=== PATIENT | male | born 1945 | race Caucasian/White ===

== ENCOUNTER → 2018-03-29 14:48 | Outpatient (CLI) | payer MEDICARE, SELFPAY ==
[2018-03-29 15:59] LABS: PSA,Total- Diagnostic < 0.01 ng/mL (0.0-4.0)
== END ==
PROVIDERS: Family Provider Family Medicine; PCP Family Medicine; Visit Provider Urology
DX: C61 Malignant neoplasm of prostate (principal)
CPT/HCPCS: 36415; 84153

== ENCOUNTER → 2018-09-27 13:12 | Outpatient (CLI) | payer MEDICARE, SELFPAY ==
[2017-02-13 08:13] VITALS: BMI 28.9
[2018-09-27 14:12] LABS: PSA,Total- Diagnostic < 0.01 ng/mL (0.0-4.0)
== END ==
PROVIDERS: Family Provider Family Medicine; PCP Family Medicine; Referring Provider Urology; Visit Provider Urology
DX: C61 Malignant neoplasm of prostate (principal)
CPT/HCPCS: 36415; 84153

== ENCOUNTER → 2019-03-30 12:14 | Outpatient (CLI) | payer MEDICARE, SELFPAY ==
[2019-03-30 14:15] LABS: PSA,Total- Diagnostic < 0.01 ng/mL (0.0-4.0)
== END ==
PROVIDERS: Family Provider Family Medicine; PCP Family Medicine; Referring Provider Urology; Visit Provider Urology
DX: C61 Malignant neoplasm of prostate (principal)
CPT/HCPCS: 36415; 84153

== ENCOUNTER → 2020-04-23 | Outpatient (CLI) | payer MEDICARE, SELFPAY ==
[2017-02-13 08:13] VITALS: BMI 28.9
[2020-04-23 09:08] LABS: PSA,Total- Diagnostic < 0.01 ng/mL (0.0-4.0)
== END | disposition home or self-care (01) ==
PROVIDERS: PCP Family Medicine; Referring Provider Urology; Visit Provider Urology
DX: Z85.46 Personal history of malignant neoplasm of prostate (principal)
CPT/HCPCS: 36415; 84153

== ENCOUNTER → 2020-04-24 | Outpatient (CLI) | payer MEDICARE, SELFPAY ==
[2017-02-13 08:13] VITALS: BMI 28.9
[2020-04-24 16:22] LABS: Bacteria 0 SEEN /hpf (None Seen); Mucous, Urine 0 SEEN /hpf (<or=2+)
[2020-04-24 16:29] LABS: Glucose, Dipstick Normal (Normal); Ketone-Dipstick Negative (Negative); Leukocyte Esterase-Dipstick Negative /ul (Negative); Nitrite-Dipstick Negative (Negative); Occult Blood-Urine 50 /ul (Negative); Protein-Dipstick 15 mg/dl (Negative); Specific Gravity, Urine 1.025 (1.002-1.030); Urine Bilirubin Dipstick Negative (Negative); Urine Urobilinogen Normal (Normal)
[2020-04-24 16:41] LABS: Color, Urine Yellow (Yellow); Urine Clarity Sl Cldy (Clear)
[2020-04-24 16:56] LABS: Red Blood Cells-Urine 5-10 SEEN /hpf (0-5); Squamous Epithelial Cells - UA 0-5 SEEN /hpf (0-5); White Blood Cells 0-5 SEEN /hpf (0-5)
== END | disposition home or self-care (01) ==
LOC: LABSPEC 16:13
PROVIDERS: PCP Family Medicine; Referring Provider Urology; Visit Provider Urology
DX: R31.9 Hematuria, unspecified (principal)
CPT/HCPCS: 81001

== ENCOUNTER → 2021-05-16 10:27 | Outpatient (CLI) | payer MEDICARE, SELFPAY ==
[2021-05-16 11:40] LABS: PSA,Total- Diagnostic < 0.01 ng/mL (0.0-4.0)
== END ==
PROVIDERS: PCP Family Medicine; Visit Provider Radiology Radiation Oncology
DX: Z85.46 Personal history of malignant neoplasm of prostate (principal)
CPT/HCPCS: 36415; 84153

== ENCOUNTER 2024-02-24 11:44 | Day surgery (SDC) | payer MEDICARE, SELFPAY ==
[2024-02-24] VITALS (8 sets, daily range): BP systolic 118–164; BP diastolic 51–91; PULSE 63–69; RESP 12–16; TEMP 36.1–36.9; O2SAT 94–98; BMI 28.5
[2024-02-24] MEDS: Lactated Ringers 1,000 ML 15 ML IV (12:12)
--- NOTE | 2024-02-24 12:21 | PRE.ANES_ITS ---
ASA Classification* ASA Classification ASA Classification: 2 Assessment & Plan Anesthesia* Anesthesia Assessment Anesthesia Assessment: Discussed sedation and/or anesthesia options, risks, benefits, and alternatives with patient/parents/legal guardian/POA. Questions invited. The patient/parents/legal guardian/POA seems to understand and agrees to proceed with anesthesia plan. Reviewed the physical assessment, medical history, allergy history and patient home medications list prior to surgery/procedure/anesthetic and documented any changes. Performed airway and anesthesia risk assessments. Anesthesia Type Anesthesia Type: General History Source History Obtained from:: Patient and Chart Anesthesia Focused Assessment* Temperature: 97 F Pulse Rate: 67 Blood Pressure: 118/91 Respiratory Rate: 16 Pulse Ox: 98 Oxygen Delivery Method: Room Air Airway Assessment Mouth opens: >3 cm Mallampati Score: II Teeth Condition: Missing (Few missing molars. Rest are tight.) Neck Range of motion (ROM): Limited ROM (Slight decrease in extension.) Focused Labs Anesthesia Preop lab: CBC WBC 5.0 K/mm3 (4.4-11.0) 02/06/15 13:25 RBC 4.93 M/mm3 (4.6-6.2) 02/06/15 13:25 Hgb 15.4 g/dL (13.0-16.5) 02/06/15 13:25 Hct 44.3 % (40-54) 02/06/15 13:25 Plt Count 154 K/mm3 (150-450) 02/06/15 13:25 CHEMISTRY Potassium 3.8 mmol/L (3.5-5.1) 12/16/13 14:57 Sodium 140 mmol/L (136-145) 12/16/13 14:57 BUN 19 mg/dL (7-18) H 12/16/13 14:57 Creatinine 1.0 mg/dL (0.8-1.3) 12/07/14 13:44 Glucose 119 mg/dL (70-110) H 12/16/13 14:57 COAG Pre-Assessment Diagnosis/Proposed Procedure Planned Operative Procedure(s): CYSTOLITHOLAPAXY Anesthesia History Anesthesia History - sampler tester: Anesthesia History - sampler tester Hx Hospitalization No 02/22/24 08:11 Any Problems With Anesthesia No 02/22/24 08:11 Cholinesterase deficiency No 02/22/24 08:11 You/Your Family Experience No 02/22/24 08:11 fever (hyperthermia) with Relationship Recent Exposure to Contagious No 02/24/24 12:04 Disease Does patient have nerve No 02/22/24 08:11 stimulator Patient instructed to have device shut off --Does patient have Pacemaker No 02/24/24 12:04 or ICD? When Was Last Pacemaker Check QUESTION #4 FULL TEXT: You/Your Family Experience fever (hyperthermia) with Anesthesia Last Oral Intake Last Oral intake: Last Oral Intake NPO since 00:00 02/24/24 12:04 Meds taken in AM with sips of water? Meds patient instructed to take am of surgery PONV PONV - sampler tester: PONV - sampler tester Female No 02/22/24 08:11 HX of Motion Sickness No 02/22/24 08:11 HX of N/V After Surgery No 02/22/24 08:11 Non-Smoker Yes 02/22/24 08:11 Duration of Surgery greater Yes 02/22/24 08:11 than 60 minutes Number of Risk Factors 2 02/22/24 08:11 PONV Score Moderate Risk 02/22/24 08:11 Height & Weight Height & Weight: Anesthesia: Height & Weight Height 5 ft 9 in 02/24/24 12:04 Weight: 87.543 kg 02/24/24 12:04 Body Mass Index (BMI) 28.5 02/24/24 12:04 Respiratory Assessment Respiratory Assessment - sampler tester: Respiratory Tract Infection Hx - sampler tester Hx Respiratory Tract Infection No 02/22/24 08:11 STOP Sleep Apnea STOP Sleep Apnea - sampler tester: STOP Sleep Apnea - sampler tester Hx Hypertension No 02/22/24 08:11 Hx Sleep Apnea No 02/22/24 08:11 CPAP BIPAP Do you snore loudly (louder No 02/22/24 08:11 than talking or can be heard Do you often feel tired/ No 02/22/24 08:11 fatigued/ sleepy during daytime? Has anyone observed you stop No 02/22/24 08:11 breathing during sleep? STOP Results Negative 02/22/24 08:11 QUESTION #5 FULL TEXT : Do you snore loudly (louder than talking or can be heard through closed doors)? Tobacco Use History Tobacco Use History - sampler tester: Tobacco Use History - sampler tester Tobacco Use Smoking Status Former smoker 02/22/24 08:11 Hx Tobacco Use No 02/22/24 08:11 Years Smoking Packs Smoked per Day Smoking Cessation Date was No - quit smoking greater 02/22/24 08:11 within the last 15 years than 15 years ago Hx Smoking Cessation Date Hx Smoking Cessation No 02/22/24 08:11 Counseling Any additional information?: Yes Smoking Status: Former smoker (Patient quit smoking 50 years ago.) Hematologic Medial History Hematologic Hx - sampler tester: Hematologic Medical Hx - development editor Hx of Blood Transfusion No 02/22/24 08:11 Hx of Transfusion in last 3 No 02/22/24 08:11 Months Date of Last Transfusion (if within last 3 months) Ever experience any problems No 02/22/24 08:11 with transfusion(s)? Specify any problems Hx of Preganancy in last 3 N/A 02/22/24 08:11 Months Nurse Filling Out Transfusion DSCHRIBER 02/22/24 08:11 & Questions: Date: 02/22/24 02/22/24 08:11 Time: 08:12 02/22/24 08:11 Patient unable to answer at this time (ie. confused, unrespo /Reproduction History /Reproductive History - sampler tester: /Reproductive Hx- sampler tester Hx Now No 02/22/24 08:11 Gestational Age (in weeks): EDC: Hx Hx Para Hx Section SAB No 02/22/24 08:11 Active Medications Active Medications: Current Medications Generic Name Dose Route Start Last Admin Trade Name Freq PRN Reason Stop Dose Admin Cefazolin Sodium 2 gm/ Sodium 110 mls @ 150 mls/hr 02/24/24 15:10 Chloride IV 02/24/24 15:53 PREOP ONE Lactated Ringer's 1,000 mls @ 15 mls/hr 02/24/24 12:00 02/24/24 12:12 IV 15 mls/hr .Q48H NIKKI Administration PFSH Medical History (Updated 02/24/24 @ 12:[address] Luke Newton MD) Tonsillectomy planned Wears hearing aid Wears glasses Cancer Prostate disease Former smoker History of stress test Home Medications ?Medication ?Instructions ?Recorded ?Last Taken ?Type multivitamin (Multiple Vitamins 1 ea PO DAILY 02/11/17 Unknown History tablet) calcium carb 333 mg-vit D3 133 1 tab PO DAILY 02/22/24 Unknown History unit-mag ox 133 mg-zinc oxide 5 mg tab (Will Mag Zinc Plus D3) cephalexin 500 mg capsule 500 mg PO BID 02/22/24 Unknown History Allergy/AdvReac Type Severity Reaction Status Date / Time No Known Allergies Allergy Verified 02/24/24 12:04 Surgical History (Updated 02/22/24 @ 08:21 by Radha Mendoza) History of cystoscopy Hx of prostatectomy Social History Smoking Status: Former smoker (Patient quit smoking 50 years ago.) Review of Systems (Anesthesia) ROS Narrative System reviewed and no additional complaints, except as documented.
[2024-02-24] MEDS: Cefazolin 2 GM in 0.9% Normal Saline (100mL Bag) 100 ML IV (12:57)
--- NOTE | 2024-02-24 13:04 | HP.PCM_ITS ---
HPI - General General Date of Service: 02/24/24 Chief Complaint: Bladder stones HPI Narrative JAISON HOANG, is a 78 M who presents for removal of bladder stones and also can a try to remove the foreign object from his bladder neck area. He has history of prostate surgery in the past radical prostatectomy and one of the clips is migrated into the bladder neck area. We tried to remove this years ago but was unsuccessful and he had a recurrence of stones on the clip. REPLACED BY [facility] Medical History (Updated 02/24/24 @ 12:[address] Luke Newton MD) Tonsillectomy planned Wears hearing aid Wears glasses Cancer Prostate disease Former smoker History of stress test Home Medications ?Medication ?Instructions ?Recorded ?Last Taken ?Type multivitamin (Multiple Vitamins 1 ea PO DAILY 02/11/17 Unknown History tablet) calcium carb 333 mg-vit D3 133 1 tab PO DAILY 02/22/24 Unknown History unit-mag ox 133 mg-zinc oxide 5 mg tab (Will Mag Zinc Plus D3) cephalexin 500 mg capsule 500 mg PO BID 02/22/24 Unknown History ciprofloxacin HCl 500 mg tablet 500 mg PO BID #10 tabs 02/24/24 Unknown Rx (Cipro) Allergy/AdvReac Type Severity Reaction Status Date / Time No Known Allergies Allergy Verified 02/24/24 12:04 Surgical History (Updated 02/22/24 @ 08:21 by Radha Mendoza) History of cystoscopy Hx of prostatectomy Social History Smoking Status: Former smoker (Patient quit smoking 50 years ago.) Vital Signs Vital Signs Vital Signs: 02/24/24 12:04 02/24/24 12:04 02/24/24 12:33 Temperature 97 F L 97 F L Temperature Source Temporal Pulse Rate 67 67 Respiratory Rate 16 16 Respiratory Pattern Normal Blood Pressure 118/91 H 118/91 H Blood Pressure Mean 100 Blood Pressure Source Monitor Blood Pressure Position Sitting Blood Pressure Location Right Arm Pulse Ox 98 98 Oxygen Delivery Method Room Air Room Air Weight Weight: 87.543 kg Body Mass Index (BMI) 28.5
--- NOTE | 2024-02-24 13:05 | DCINST_ITS ---
Discharge Instructions Diet Discharge Diet: No restrictions Activity Discharge Activity: Return to Normal Activity and May Not Drive (while taking narcotic pain medications.) Dressing / Incision Call your doctor if you observe: Fever of 101 or Higher Follow Up Care Please Follow Up With: Jan Zimmer MD When: Call [phone] for an appointment Test Results: Test results from this visit will be discussed in further detail at your follow- up appointment, if applicable. Discharge Plan Admission Primary Reason for Your Visit: laser bladder stones Attending Provider: Jan Zimmer Primary Care Provider: Madhav Fonseca Instructions Print Language: [place] Discharge Orders/Prescriptions Prescriptions: New ciprofloxacin HCl [Cipro] 500 mg tablet 500 mg PO BID Qty: 10 0RF Continued multivitamin [Multiple Vitamins] 1 EACH tablet 1 ea PO DAILY cephalexin 500 mg capsule 500 mg PO BID Will Mag Zinc Plus D3 333 mg-133 unit -133 mg-5 mg tablet 1 tab PO DAILY Referrals / Follow Up: Madhav Fonseca MD [Primary Care Provider] - Jan Zimmer MD [Med Staff - Active Staff] - Disposition Disposition (needs filled in before D/C Order can be placed): Home, Self Care
--- NOTE | 2024-02-24 13:30 | PCM.OPRPT ---
Report of Operation Date of Procedure: 02/24/24 Pre-Operative Diagnosis: Stone at the bladder neck Post-Operative Diagnosis: The same Surgery/Procedure Performed:: Cystolitholapaxy and laser large stones Description of Surgical Findings:: Patient was taken back to the operating room, this is a 78-year-old male who underwent a radical prostatectomy for prostate cancer long time ago he has been clear of disease he did have radiation therapy postoperatively at this point he has no evidence of recurrence of cancer-having more difficulty with urination and blood in the urine on cystoscopy is found to have stone at the bladder neck and also a free-floating stone inside the bladder in the past he did have a clip that was migrated into the bladder was removed I suspect maybe there is another clip so I can take him to surgery today and laser off the stones and see if there is another clip that needs to be removed . Patient was taken back to the operating room after smooth induction of anesthesia he was placed in dorsolithotomy position. The penis and testicles were prepped and draped in usual sterile fashion went into the bladder with a 21 English rigid cystourethroscope I got through the urethra into the sphincter it was quite tight once I got to the sphincter then there was a stone right at the bladder neck and the second stone that pushed back for stone was about 2 cm in size the second stone was 2.5 cm in size I then used a 550 ?m laser fiber and lasered the stone a little tiny pieces and flushed all the pieces out I then went back to the second stone and the stone was stuck at the bladder neck and I lasered off the bladder neck and lasered somewhat into the tissue the bladder neck I did not see a clip or any foreign objects I did not identify any source of the rise he had a stone at the bladder neck he did have valleculae a lot of hard scar tissue the bladder neck area it is possible just a stone formed on that. Patient desired not to go home with a catheter there was minimal bleeding from lasering of the stone in the bladder and the bladder neck so I drained the bladder left and without a catheter and he will go home today without a catheter. Surgeon: Jan Zimmer Type of Anesthesia: General Drains: none Estimated Blood Loss (mL): 0 Admit VTE Documentation VTE Present on Admission: No VTE Mechan Device Prophylaxis: SCD's VTE Pharm Prophylaxis ordered?: No
--- NOTE | 2024-02-24 13:41 | PCM.POST.ANE ---
Anesthesia: Postop Eval I Current Vital Signs Temperature: 98.4 F Pulse Rate: 67 Blood Pressure: 164/89 Respiratory Rate: 12 Pulse Ox: 95 Oxygen Delivery Method: Room Air Assessment Airway patent: Yes Spontaneous unlabored respirations: Yes Mental status: Calm nausea: No Vomiting: No Anesthesia Complication: No Fluid Hydration Crystalloid volume administer (ml): 500 Blood Product volume administered (ml): 0 Total IV fluid infused: 500 Progress Note Anesthesia document: Postop Eval 1 completed: Yes
[2024-02-24] MEDS: Ketorolac 15 MG/ML Vial IV (13:54)
--- NOTE | 2024-02-24 14:46 | POSTOPAN2_ITS ---
Anesthesia Postop Eval I Sum Postop Eval Completion status Anesthesia document: Postop Eval 1 completed: Yes Anesthesia Postop Eval I Summary Anesthesia Postop Eval I Summary: Anesthesia Postop Eval I: Assessment Summary Airway patent Yes 02/24/24 13:42 [email or web address] [email or web address] Spontaneous unlabored Yes 02/24/24 13:42 LUMP [email or web address] respirations Mental status Calm 02/24/24 13:42 LUMP [email or web address] nausea No 02/24/24 13:42 LUMP ROLLER.GDOTT Vomiting No 02/24/24 13:42 LUMP [email or web address].[email or web address] Anesthesia Postop Eval I: Fluid Summary Crystalloid volume administer 500 02/24/24 13:42 LUMP [email or web address].GDOTT (ml) Colloids volume administered ( ml) Blood Product volume 0 02/24/24 13:42 LUMP [email or web address].GDOTT administered (ml) Total IV fluid infused 500 02/24/24 13:42 LUMP [email or web address].GDOTT Anesthesia Postop Eval I: Summary Notes Anesthesia Complication No 02/24/24 13:42 LUMP [email or web address].GDOTT Anesthesia Complication Comment: Post-operative progress note Anesthesia: Postop Eval II Evaluation Mental status: Awake and Calm Pain Level: 1 nausea: No Vomiting: No Complications Anesthesia Complication: No
--- NOTE | 2024-02-24 14:46 | PCM.POSTANE2 ---
Anesthesia Postop Eval I Sum Postop Eval Completion status Anesthesia document: Postop Eval 1 completed: Yes Anesthesia Postop Eval I Summary Anesthesia Postop Eval I Summary: Anesthesia Postop Eval I: Assessment Summary Airway patent Yes 02/24/24 13:42 BENCH PATTERNMAKER [email or web address].[email or web address] Spontaneous unlabored Yes 02/24/24 13:42 BENCH PATTERNMAKER METAL.GDOTT respirations Mental status Calm 02/24/24 13:42 BENCH PATTERNMAKER METAL.GDOTT nausea No 02/24/24 13:42 BENCH PATTERNMAKER METAL.GDOTT Vomiting No 02/24/24 13:42 BENCH PATTERNMAKER METAL.GDOTT Anesthesia Postop Eval I: Fluid Summary Crystalloid volume administer 500 02/24/24 13:42 BENCH PATTERNMAKER METAL.GDOTT (ml) Colloids volume administered ( ml) Blood Product volume 0 02/24/24 13:42 BENCH PATTERNMAKER METAL.GDOTT administered (ml) Total IV fluid infused 500 02/24/24 13:42 BENCH PATTERNMAKER METAL.GDOTT Anesthesia Postop Eval I: Summary Notes Anesthesia Complication No 02/24/24 13:42 BENCH PATTERNMAKER METAL.GDOTT Anesthesia Complication Comment: Post-operative progress note Anesthesia: Postop Eval II Evaluation Mental status: Awake and Calm Pain Level: 1 nausea: No Vomiting: No Complications Anesthesia Complication: No
== END 2024-02-24 14:31 | disposition home or self-care (01) ==
LOC: SDC 11:44 → AC 11:46
PROVIDERS: PCP Family Medicine; Referring Provider Urology; Visit Provider Urology
PROC: (CPT 52317; principal; 2024-02-24 13:30)
DX: N21.0 Calculus in bladder (principal); Z87.891 Personal history of nicotine dependence
CPT/HCPCS: 52317; J7120; J2405

== ENCOUNTER → 2025-04-04 | Outpatient (CLI) | payer MEDICARE, SELFPAY ==
[2025-04-04 10:43] LABS: PSA,Total- Diagnostic < 0.02 ng/mL (0.00-4.00)
== END | disposition home or self-care (01) ==
LOC: LAB 08:17
PROVIDERS: PCP Family Medicine; Referring Provider Urology; Visit Provider Urology
DX: C61 Malignant neoplasm of prostate (principal)
CPT/HCPCS: 36415; 84153